=== PATIENT | male | born 1990 | race Caucasian/White ===

== ENCOUNTER 2022-03-26 08:54 | Emergency (ER) | payer SELFPAY ==
[2022-03-26 08:58] VITALS: BP 143/95; PULSE 76; RESP 16; TEMP 35.8; O2SAT 96; BMI 33.2
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
[2022-03-26] MEDS: TETANUS/DIPHTH/PERTUSSIS 0.5 ML SYRINGE IM (09:57)
== END 2022-03-26 10:06 | disposition home or self-care (01) ==
PROVIDERS: Emergency Provider Family Medicine
DX: S61.411A Laceration without foreign body of right hand, initial encounter (principal); S61.011A Laceration without foreign body of right thumb without damage to nail, initial encounter; R58 Hemorrhage, not elsewhere classified; W22.8XXA Striking against or struck by other objects, initial encounter
CPT/HCPCS: 12001; 90471; 90715; 99283; 99284

== ENCOUNTER 2023-02-05 08:05 | Emergency (ER) | payer OTHER, SELFPAY ==
[2023-02-05 08:57] VITALS: BP 130/77; PULSE 98; RESP 16; TEMP 36.6; O2SAT 98; BMI 30.5
--- NOTE | 2023-02-05 09:08 | ED.GENADULT ---
HPI - General Adult General Chief complaint: Cough Stated complaint: Possible COVID Time Seen by Provider: 02/05/23 09:00 Source: patient and family Mode of arrival: ambulatory Limitations: no limitations History of Present Illness HPI narrative: 32-year-old male presenting with 2 days of fevers, chills and body aches. Patient states that he felt very hot over the last 2 days but did not measure his temperature. Had chills on and off over the last 2 days as well. Today he feels significantly better. He had some diarrhea yesterday as well that seems to have resolved. He did come into contact with someone with COVID at his work so he is concerned about that. He has a very mild dry cough. He denies any chest pain or shortness of breath. He does have a mild headache which is also feeling much better today. He denies dizziness, changes in his vision. He denies significant abdominal pain. No rashes. He is here with his and 2 children, all of whom have coughs or upper respiratory symptoms as well. States that his past medical history is benign, takes no medications. Related Data Home Medications Medication Instructions Recorded Confirmed No Known Home Medications 03/26/22 03/26/22 Allergies Allergy/AdvReac Type Severity Reaction Status Date / Time No Known Drug Allergies Allergy Verified 03/26/22 09:03 Review of Systems Status of ROS: Reports: 10 or more systems reviewed and unremarkable except as noted in History and below [facility] Social History Smoking Status: Never smoker Do you use any of these nicotine containing products: None Second hand tobacco smoke exposure: No How often do you have a drink containing alcohol: never How often do you have six or more drinks on one occasion: Never AUDIT-C Alcohol total score: 0 Non-prescribed substance use: denies use service: No Exam Narrative: Exam Narrative: Well-nourished well-developed patient in no acute distress. Alert and oriented. Answers questions appropriately. Mood and affect are appropriate. Thoughts are goal oriented and rational. No tangential or magical thinking noted. Patient speaks in full sentences without needing to catch his breath. Does not appear ill or toxic. HEENT: Normocephalic atraumatic. Pupils are equally round reactive to light. Extraocular muscles are intact. Conjunctivae are moist without any icterus noted. Moist mucous membranes. Posterior pharynx is normal. Neck is soft without any lymphadenopathy or thyromegaly. No masses are appreciated. Cardiovascular: Heart is regular rate and rhythm S1 and S2 are present without any murmurs. Lungs: Clear to auscultation bilaterally no wheezes rhonchi or rales are appreciated. Patient takes deep breaths without any discomfort. Abdomen: Soft and nontender nondistended with normal bowel sounds. Extremities: Bilateral lower extremities are without edema. Skin: Well perfused without any obvious rashes. Const: Vital Signs, click to edit/add: Vital Signs - 24 hr 02/05/23 08:57 Temperature 97.8 F Pulse Rate [Pulse Oximeter] 98 Respiratory Rate 16 Blood Pressure [Ri ght Upper Arm] 130/77 Pulse Oximetry 98 Oxygen Delivery Me thod Room Air Course Course ED Course: Triple swab was obtained. This was negative. Vital Signs Vital signs: Initial Vital Signs Temperature 97.8 F 02/05/23 08:57 Temperature Source Temporal Artery Scan 02/05/23 08:57 Pulse Rate 98 02/05/23 08:57 Respiratory Rate 16 02/05/23 08:57 Blood Pressure 130/77 02/05/23 08:57 Blood Pressure Mean 94 02/05/23 08:57 Blood Pressure Position Sitting 02/05/23 08:57 Pulse Oximetry 98 02/05/23 08:57 Oxygen Delivery Method Room Air 02/05/23 08:57 Vital Signs Temperature 97.8 F 02/05/23 08:57 Pulse Rate 98 02/05/23 08:57 Respiratory Rate 16 02/05/23 08:57 Blood Pressure 130/77 02/05/23 08:57 Pulse Oximetry 98 02/05/23 08:57 Oxygen Delivery Method Room Air 02/05/23 08:57 Temperature 97.8 F 02/05/23 08:57 Pulse Rate 98 02/05/23 08:57 Respiratory Rate 16 02/05/23 08:57 Blood Pressure 130/77 02/05/23 08:57 Pulse Oximetry 98 02/05/23 08:57 Oxygen Delivery Method Room Air 02/05/23 08:57 Medical Decision Making MDM Narrative Medical decision making narrative: 32-year-old male with 2 days of body aches, chills and feeling hot. His vitals are entirely normal today. He does not appear ill or toxic. And he states that his symptoms have improved today. Triple swab is negative. We discussed the potential he did have a virus of some sort that has now improved. Recommend continuing monitoring of his symptoms. If he gets worse, certainly return to the ER. Lab Data Lab results reviewed: Yes I reviewed the patient's lab results Labs: Lab Results 02/05/23 Range/Units Unknown SARS-CoV-2 (PCR) Negative SARS-CoV-2 (Negative) Influenza Type A (PCR) Negative PCR FLU A (Negative) Influenza Type B (PCR) Negative PCR FLU B (Negative) RSV (PCR) Negative PCR RSV (Negative) Discharge Plan Discharge Clinical Impression: Acute viral syndrome Patient Disposition: Home, Self-Care Condition: Stable Additional Instructions: You are negative for COVID, influenza or RSV today. Get plenty of rest, eat a healthy diet. If you feel like you are getting worse instead of better return to the ER or follow-up with your primary care provider. Prescriptions: No Action No Known Home Medications Follow Up/Referrals: Provider,Not a Local [Primary Care Provider] - Stand Alone Forms: [employer] Info Instructions
[2023-02-05 09:42] LABS: PCR FLU A Negative PCR FLU A (Negative); PCR FLU B Negative PCR FLU B (Negative); PCR RSV Negative PCR RSV (Negative)
[2023-02-05 09:46] LABS: SARS PCR* Negative SARS-CoV-2 (Negative)
== END 2023-02-05 10:56 | disposition home or self-care (01) ==
PROVIDERS: Emergency Provider Family Medicine
DX: B34.9 Viral infection, unspecified (principal)
CPT/HCPCS: 87631; 95992; 99282; 99283; 99284

== ENCOUNTER 2024-04-01 09:13 | Emergency (ER) | payer OTHER, SELFPAY ==
[2024-04-01 09:15] VITALS: BP 137/74; PULSE 68; RESP 18; TEMP 36.6; O2SAT 99; BMI 31.9
--- OUTSIDE RECORDS SUMMARY | 2024-04-01 09:15 | XMS_ITS | Clinical Summary ---
Author Organization [facility] Address [place], [place] [address] Care Team Providers Care Vibration Engineer Name Role Phone Pcp, No Primary Care Provider Unavailabl e None Unavailable Unavailable Allergies No known active allergies Medications rx HYDROcodone-acet aminophen, 5-325 mg, (NORCO) tablet (ED DC MED)Indications: Closed displaced fracture of neck of fifth metacarpal bone of right hand, initial encounter Take 1 Tablet by mouth every 6 hours if needed (pain). 4 Tablet 08/21/2021 Active durable medical equipment (DME)Indications :Closed boxer's fracture, initial encounter Right TKO 1 Each 09/02/2021 Active Active Problems No known active problems Immunizations Name Administration Dates Next Due DTaP 04/10/1997, 5,07/30/1993,1992, 1992 Dtap-5 Pertussis Antigens 04/10/1997,07/1994,07/30/1993,1992, 1992 HIB HbOC (HibTITER) 03/28/1994 HIB PRP-OMP (PedvaxHIB) 07/30/1993,1992, Hepatitis B (Peds) 04/25/2005,02/22/2005, 005 Hepatitis B, Unspecified 04/25/2005,02/22/2005,1 02/27/2004 Human Papilloma Virus Vaccine 06/04/2012, 012,11/17/2011 Inactivated Polio Vaccine 04/10/1997,07/30/1993, 1992,1992 Influenza, IIV3 (Age >=3 years) 01/19/2012,10/30 MMR 12/27/2004,07/30/1993 Td (Age >=7 Years) 12/27/2004 Tdap 06/04/2012 Family History Medical History Relation Name Comments Diabetes type II Mother Diabetes type II Sister 1 Diabetes type II Sister 2 Relation Name Status Comments Mother Sister 1 Alive Sister 2 Alive Social History Tobacco Use Types Packs/Day Years Used Date Smoking Tobacco: Some Days Cigarettes 0.3 3 Smokeless Tobacco: Never Tobacco Cessation:Ready to Q uit: No; Counseling Given: Yes Comments:1 pack usually last a week - only when he is stressed Alcohol Use Standard Drinks/Week Comments Not Currently 0 (1 standard drink = 0.6 oz pur e alcohol) PHQ-2 Answer Date Recorded PHQ-2 TOTAL SCORE 2 08/20/2021 Social Connections Answer Date Recorded Frequency of Communication with Friends and Fami ly Not on file 08/20/2021 Sex and Gender Information Value Date Recorded Sex Assigned at Not on file 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 Gender Identity Not on file Sexual Orientation Not on file Obstetrics History Last Filed Vital Signs Vital Sign Reading Time Taken Comments Blood Pressure 142/96 08/22/2021 12:06 AM CDT Pulse 66 08/22/2021 12:06 AM CDT Temperature 36.9 C (98.4 F) 08/22/2021 12:06 AM CDT Respiratory Rate 16 08/22/2021 12:0 6 AM CDT Oxygen Saturation 98% 08/22/2021 12: 06 AM CDT Inhaled Oxygen Concentration - - Weight 106.3 kg (234 lb 4.8 oz) 08/21/2021 9:44 PM CDT Height 182.9 cm (6') 08/21/2021 9:44 PM CDT Body Mass Index 31.78 08/21/2021 9:44 PM CDT Plan of Treatment Health Maintenance Due Date Last Done Comments HIV for age 15-65 02/20/2007 Hepatitis C screening for ag e 18-79 02/20/2010 Tetanus booster 06/04/2022 06/04/2012, 12/27/2004 BMI (ht and wt on same day) for age 18+ 08/20/2022 08/20/2021, 06/23/2016 Depression screening for age 12+ 08/21/2022 08/21/2021, 08/20/2021 COVID-19 vaccine series (2023- season) 2023 Influenza for age 9-49 10/22/2023 2, 10/30/2009 Tdap Completed 06/04/2012 Pneumococcal series for age 6-49 Aged Out No longer eligible b ased on patient's age to complete this topic Insurance MED[employer] CHOICE Care Teams Vibration Engineer Relationship Specialty Start Date End Date Pcp, No . PCP - General 01/31/24 None . 01/31/24
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
--- OUTSIDE RECORDS SUMMARY | 2024-04-01 10:26 | XMS_ITS | Clinical Summary ---
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 PCP - General 01/31/24 None . 01/31/24
== END 2024-04-01 10:26 | disposition home or self-care (01) ==
PROVIDERS: Emergency Provider Emergency Medicine Emergency Medical Services
DX: T23.201A Burn of second degree of right hand, unspecified site, initial encounter (principal); X12.XXXA Contact with other hot fluids, initial encounter; Y99.0 Civilian activity done for income or pay
CPT/HCPCS: 99283; 99284

== ENCOUNTER 2024-08-21 21:52 | Emergency (ER) | payer OTHER, SELFPAY ==
--- OUTSIDE RECORDS SUMMARY | 2024-08-21 21:54 | XMS_ITS | Clinical Summary ---
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 Gender Identity Not on file Sexual Orientation [...] Health Maintenance Due Date Last Done Comments Depression screening for age 12+ 2004 HIV for age 15-65 02/20/2007 Hepatitis C screening for age 18-79 02/20/2010 Tetanus booster 06/04/2022 06/04/2012, 12/27/2004 BMI (ht and wt on same day) for age 18+ 08/20/2022 08/20/2021, 06/23/2016 COVID-19 vaccine series ( - 2023- season) 2023 Influenza Vaccine (#1) 2024 01/19/2012, 2009 Hepatitis B series for 19+ Completed 04/25, 04/25/2005, 02/22/2005, Additional history exists Pneumococcal series for age 6-49 Aged Out No longer eligible based on patient's age to complete this topic Insurance [employer] Care Teams Purchasing And Fiscal Clerk Relationship Specialty Start Date End Date Pcp, No . PCP - General 01/31/24 None . 01/31/24
[2024-08-21 22:04] VITALS: BP 151/79; PULSE 81; RESP 18; TEMP 36.9; O2SAT 99; BMI 31.9
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
[2024-08-21 22:36] VITALS: O2SAT 98
[2024-08-21] MEDS: CYCLOBENZAPRINE HCL 10 MG TABLET PO (22:55)
[2024-08-21] MEDS: ONDANSETRON 2 MG/ML inj 4 MG IVP (22:56)
[2024-08-22 00:46] VITALS: BP 131/83; PULSE 66; RESP 18; TEMP 36.6; O2SAT 98
== END 2024-08-22 00:48 | disposition home or self-care (01) ==
PROVIDERS: Emergency Provider Emergency Medicine
DX: M54.50 Low back pain, unspecified (principal)
CPT/HCPCS: 94761; 96374; 96375; 99283; 99284; A9270; J1171; J1885; J2405

== ENCOUNTER 2024-08-25 13:16 | Emergency (ER) | payer OTHER, SELFPAY ==
[2024-08-25] VITALS (31 sets, daily range): BP systolic 118–135; BP diastolic 57–80; PULSE 55–78; RESP 18–24; TEMP 36.9; O2SAT 93–100; BMI 31.9
--- OUTSIDE RECORDS SUMMARY | 2024-08-25 13:17 | XMS_ITS | Clinical Summary ---
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 Active oxyCODONE-acet aminophen (Percocet) 5-325 mg per tablet Take 1 Tablet by mouth every 4 hours if needed for Pain. Max acetaminophen dose: 4000mg in 24 hrs. Active methylPREDNISo lone (Medrol (Brennan)) 4 mg tabletIndicati ons:Acute midline low back pain without sciatica Take by mouth as instructed per packaging. 21 Tablet 08/23/19 25 Active rx HYDROcodone-ac etaminophen, 5-325 mg, (NORCO) tablet (ED DC MED)Indication s:Closed displaced fracture of neck of fifth metacarpal bone of right hand, initial encounter Take 1 Tablet by mouth every 6 hours if needed (pain). 4 Tablet 08/22/19 22 025 Discontin ued(*Med complete/ Regimen complete/ Level of care change) Active Problems No known active problems Encounters Date Type Department Care Team Description 08/22/2024 12:40 PM CDT Office Visit [facility] [address] [place] [address] Soniya Ko MD [facility] F/U (Back pain /Patient states they suggested an MRI they are looking for a referral. ) 08/22/2024 Travel from Last 3 Months Immunizations Immunization Administration Dates Next Due DTaP 04/10/1997, 5,07/30/1993,1992, 1992 Dtap-5 Pertussis Antigens 04/10/1997,07/1994,07/30/1993,1992, 1992 HIB HbOC (HibTITER) 03/28/1994 HIB PRP-OMP (PedvaxHIB) 07/30/1993,1992, Hepatitis B (Peds) 04/25/2005,02/22/2005, 005 Hepatitis B, Unspecified 04/25/2005,02/22/2005,1 02/27/2004 Human Papilloma Virus Vaccine 06/04/2012, 012,11/17/2011 Inactivated Polio Vaccine 04/10/1997,07/30/1993, 1992,1992 Influenza, IIV3 (Age >=3 years) 01/19/2012,10/30 MMR 12/27/2004,07/30/1993 Td (Age >=7 Years) 12/27/2004 Tdap 03/26/2022,06/04/2012 Family History Medical History Relation Name Comments [...] 2 08/20/2021 Social Connections Answer Date Recorded Do you often feel lonely or isolated from those around you? 0 08/22/2024 Financial Resource Strain Answer Date R ecorded Difficulty of Paying Living Expenses 3 08/22/2024 Difficulty of Paying Living Expenses Not on file 08/22/2024 Food Insecurity Answer Date Recorded Do you worry your food will run out before you are able to buy more? 1 08/22/2024 Transportation Needs Answer Date Record ed Does lack of transportation keep you from medica l appointments? 1 08/22/2024 Does lack of transportation keep you from work, meetings or getting things that you need? 1 08/22/2024 Housing Stability Answer Date Recorded What is your housing situation today? 1 08/22/2024 Utilities Answer Date Recorded Do you have trouble paying f or utilities (for example, heat, electricity, water, phone)? 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 Gender Identity Not on file Sexual Orientation Not on file Obstetrics History Last Filed Vital Signs Vital Sign Reading Time Taken Comments Blood Pressure 118/73 08/22/2024 12:45 PM CDT Pulse 66 08/22/2024 12:45 PM CDT Temperature 36.9 C (98.4 F) 08/22/2021 12:06 AM CDT Respiratory Rate 16 08/22/2021 12:06 AM CDT Oxygen Saturation 98% 08/22/2024 12:45 PM CDT Inhaled Oxygen Concentration - - Weight 107 kg (236 lb) 08/22/2024 12:45 PM CDT Height 182.9 cm (6') 08/21/2021 9:44 PM CDT Body Mass Index 32.01 08/21/2021 9:44 PM CDT Plan of Treatment Health Maintenance Due Date Last Done Comments Depression screening for age 12+ 2004 HIV for age 15-65 02/20/2007 Hepatitis C screening for ag e 18-79 02/20/2010 Pneumococcal series for age 6-49 (1 of 2 - PCV) 02/20/2011 BMI (ht and wt on same day) for age 18+ 08/20/2022 08/20/2021, 06/23/2016 COVID-19 vaccine series ( season) 2023 Influenza Vaccine (#1) 2024 01/19/2012, 2009 Tetanus booster 03/26/2032 03/26/2022, 05/21, 12/27/2004 Hepatitis B series for 19+ Completed 04/25, 04/25/2005, 02/22/2005, Additional history exists Insurance [employer] Care Teams Nail Polish Brush Machine Feeder Relationship Specialty Start Date End Date Pcp, No . PCP - General 01/31/24 None . 01/31/24
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
[2024-08-25 14:42] LABS: Hemoglobin* 13.7 gm/dL (13.5-17.5); Mean Corpuscular Hemoglobin 30 pg (26-34); Mean Corpuscular Volume 90 fL (80-100)
[2024-08-25] MEDS: ONDANSETRON 2 MG/ML inj 4 MG IVP (14:43)
[2024-08-25 14:44] LABS: Slide Review Reflex No
[2024-08-25 14:54] LABS: Chloride* 105 mmol/L (96-114); Sodium* 137 mmol/L (135-149)
[2024-08-25 14:55] LABS: Potassium* 3.9 mmol/L (3.6-5.1)
[2024-08-25 14:57] LABS: Blood Urea Nitrogen* 9 mg/dL (5-24); Creatinine* 0.8 mg/dL (0.5-1.5); Est. Creatinine Clearance* 145.50; Estimated Glomerular Filt Rate 121 ml/min
[2024-08-25 14:58] LABS: Anion Gap 8 mEq/L (7-15); Calcium* 9.3 mg/dL (8.4-10.6); Carbon Dioxide* 24 mmol/L (20-32); Glucose* 106 mg/dL (60-115)
[2024-08-25 15:03] LABS: Hematocrit 40.9 % (37.0-53.0); Immature Granulocytes Abs Auto 0.10 K/uL (0.00-0.30); Immature Granulocytes Pct Auto 1.2 %; Lymphocytes Absolute Auto 1.40 K/uL (0.90-2.90); Mean Corpuscular HGB Conc 34 gm/dL (32-36); RDW Coefficient of Variation % 13.4 % (11.5-15.5); Red Blood Count 4.57 m/uL (4.30-5.90); White Blood Count* 7.65 K/uL (4.50-11.00)
== END 2024-08-25 17:32 | disposition home or self-care (01) ==
PROVIDERS: Emergency Provider Emergency Medicine
DX: M54.50 Low back pain, unspecified (principal); M21.371 Foot drop, right foot; R20.0 Anesthesia of skin
CPT/HCPCS: 36415; 80048; 85025; 96374; 96375; 99283; 99284; A9270; J1171; J2405